=== PATIENT | male | born 1950 | race Caucasian/White ===

== ENCOUNTER 2017-03-22 09:30 | Emergency (ER) | payer OTHER ==
[~2017-03-22] VITALS: Ht 177.8 cm; Wt 66.7 kg
[~2017-03-22 09:30] MED LIST: AMLODIPINE BES10 MG PO; ASPIRIN81 M1 PO; DAYPRO600 M1 PO; LIPITOR40 MG PO; LIPITOR80 MG PO; LISINOPRIL20 MG PO; MULTI-DAY VITA1 EACH PO; NAPROSYN500 MG PO; NIFEDIPINE30 MG PO; NORCO 325 MG-51 TAB PO; PARAFON FORTE500 MG PO; PRINIVIL10 MG PO; RID COMPLETE TP; VITAMIN D1000 IU PO; VITAMIN D50000 I3 PO
[2017-03-22 10:02] LABS: BASO % 0.2 % (0.0-1.0); EOS # 0.2 10*3/uL (0.0-0.4); EOS % 3.2 % (1.0-4.0); HEMATOCRIT 44.4 % (42.0-52.0); HEMOGLOBIN 15.4 g/dl (14.0-18.0); LYMPH # 1.9 10*3/uL (1.3-4.4); LYMPH % 34.6 % (27.0-41.0); MEAN CELL VOLUME 94.1 fl (80.0-94.0); MEAN CORPUSCULAR HGB 32.6 pg (27.0-31.0); MEAN CORPUSCULAR HGB CONC 34.7 g/dl (33.0-37.0); MEAN PLATELET VOLUME 8.7 fl (9.6-12.3); MONO # 0.4 10*3/uL (0.1-1.0); MONO % 6.5 % (3.0-9.0); NEUT # 3.1 10*3/uL (2.3-7.9); NEUT % 55.5 % (47.0-73.0); PLATELET COUNT AUTOMATED 150 10*3/uL (130-400); RED BLOOD COUNT 4.72 10*6/uL (4.50-5.90); RED CELL DISTRI WIDTH 13.1 % (0-14.5); WHITE BLOOD COUNT 5.6 10*3/uL (4.8-10.8)
[2017-03-22 10:18] LABS: ALBUMIN 3.7 gm/dl (3.1-4.5); ALKALINE PHOSPHATASE 142 U/L (45-117); BUN 10 mg/dl (7-24); CHLORIDE 99 mmol/L (98-107); CREATININE 1.02 mg/dL (0.70-1.30); POTASSIUM 3.9 mmol/L (3.5-5.1); SGOT/AST 20 IU/L (3-35); SGPT/ALT 27 U/L (12-78); SODIUM 136 mmol/L (136-145); TOTAL PROTEIN 7.3 gm/dL (6.4-8.2); TROPONIN I < 0.015 ng/ml (<0.045)
== END 2017-03-22 11:35 | disposition home or self-care (01) ==
LOC: ED 09:30
PROVIDERS: Nurse Practitioner Family
DX: R06.02 Shortness of breath (principal); I10 Essential (primary) hypertension

== ENCOUNTER 2017-10-09 07:55 | Emergency (ER) | payer OTHER ==
[~2017-10-09] VITALS: Ht 177.8 cm; Wt 64.0 kg
[2017-10-09] MEDS ORDERED: LISINOPRIL10 M1 PO (08:06)
[2017-10-09 08:39] LABS: BASO % 0.2 % (0.0-1.0); EOS % 0.7 % (1.0-4.0); HEMATOCRIT 44.8 % (42.0-52.0); HEMOGLOBIN 15.9 g/dl (14.0-18.0); LYMPH % 21.7 % (27.0-41.0); MEAN CELL VOLUME 92.9 fl (80.0-94.0); MEAN CORPUSCULAR HGB CONC 35.5 g/dl (33.0-37.0); MEAN PLATELET VOLUME 8.9 fl (9.6-12.3); MONO # 0.2 10*3/uL (0.1-1.0); NEUT # 3.3 10*3/uL (2.3-7.9); NEUT % 71.7 % (47.0-73.0); PLATELET COUNT AUTOMATED 144 10*3/uL (130-400); RED BLOOD COUNT 4.82 10*6/uL (4.50-5.90); RED CELL DISTRI WIDTH 12.9 % (0-14.5); WHITE BLOOD COUNT 4.6 10*3/uL (4.8-10.8)
[2017-10-09 08:52] LABS: ALBUMIN 3.6 gm/dl (3.1-4.5); ALKALINE PHOSPHATASE 115 U/L (45-117); BUN 8 mg/dl (7-24); CHLORIDE 95 mmol/L (98-107); CREATININE 0.98 mg/dL (0.70-1.30); POTASSIUM 4.4 mmol/L (3.5-5.1); SGOT/AST 60 IU/L (3-35); SGPT/ALT 55 U/L (12-78); SODIUM 129 mmol/L (136-145); TOTAL PROTEIN 7.1 gm/dL (6.4-8.2)
== END 2017-10-09 09:53 | disposition home or self-care (01) ==
LOC: ED 07:55
PROVIDERS: Emergency Medicine
DX: R42 Dizziness and giddiness (principal); R05 Cough; Z87.891 Personal history of nicotine dependence; Z79.899 Other long term (current) drug therapy

== ENCOUNTER 2017-11-07 17:06 | Inpatient (IN) | payer OTHER ==
[~2017-11-07] VITALS: Ht 177.8 cm; Wt 61.7 kg
[~2017-11-07 17:06] MED LIST changes: +LISINOPRIL10 M1 PO
[2017-11-07 17:10] VITALS: BP 134/86
[2017-11-07 18:17] LABS: BASO % 0.2 % (0.0-1.0); EOS % 0.9 % (1.0-4.0); HEMATOCRIT 42.2 % (42.0-52.0); HEMOGLOBIN 15.1 g/dl (14.0-18.0); LYMPH # 1.4 10*3/uL (1.3-4.4); LYMPH % 30.3 % (27.0-41.0); MEAN CELL VOLUME 91.3 fl (80.0-94.0); MEAN CORPUSCULAR HGB 32.7 pg (27.0-31.0); MEAN CORPUSCULAR HGB CONC 35.8 g/dl (33.0-37.0); MEAN PLATELET VOLUME 8.8 fl (9.6-12.3); MONO # 0.3 10*3/uL (0.1-1.0); MONO % 5.4 % (3.0-9.0); NEUT # 2.9 10*3/uL (2.3-7.9); PLATELET COUNT AUTOMATED 140 10*3/uL (130-400); RED BLOOD COUNT 4.62 10*6/uL (4.50-5.90); RED CELL DISTRI WIDTH 13.1 % (0-14.5); WHITE BLOOD COUNT 4.7 10*3/uL (4.8-10.8)
[2017-11-07 18:27] LABS: ACT PARTIAL THROMBO TIME 22.6 SECONDS (20.8-31.5); INTERNATIONAL NORM RATIO 0.9 (2.0-3.5)
[2017-11-07 18:34] LABS: ALBUMIN 3.6 gm/dl (3.1-4.5); ALKALINE PHOSPHATASE 105 U/L (45-117); BUN 7 mg/dl (7-24); CHLORIDE 94 mmol/L (98-107); CREATININE 0.84 mg/dL (0.70-1.30); LIPASE 227 U/L (73-393); POTASSIUM 4.2 mmol/L (3.5-5.1); SGOT/AST 46 IU/L (3-35); SGPT/ALT 67 U/L (12-78); SODIUM 127 mmol/L (136-145); TROPONIN I 0.024 ng/ml (<0.045)
[2017-11-07 19:32] VITALS: BP 124/72
== END 2017-11-07 21:48 | disposition left against medical advice (07) | DRG 191 ==
LOC: ED 17:06 → EDHOLD 18:44 → 5E 19:37 → EDHOLD 21:48
PROVIDERS: Emergency Medicine
DX: J44.1 Chronic obstructive pulmonary disease with (acute) exacerbation (principal); E87.1 Hypo-osmolality and hyponatremia; F17.200 Nicotine dependence, unspecified, uncomplicated; Z53.21 Procedure and treatment not carried out due to patient leaving prior to being seen by health care provider; Z82.49 Family history of ischemic heart disease and other diseases of the circulatory system; Z83.3 Family history of diabetes mellitus

== ENCOUNTER 2017-11-09 10:16 | Inpatient (IN) | payer OTHER ==
[~2017-11-09] VITALS: Ht 177.8 cm; Wt 60.8 kg
[2017-11-09 10:20] VITALS: BP 127/70
[2017-11-09 10:40] LABS: EOS # 0.1 10*3/uL (0.0-0.4); EOS % 2.4 % (1.0-4.0); HEMATOCRIT 38.8 % (42.0-52.0); LYMPH # 1.1 10*3/uL (1.3-4.4); LYMPH % 19.9 % (27.0-41.0); MEAN CELL VOLUME 91.3 fl (80.0-94.0); MEAN CORPUSCULAR HGB 32.9 pg (27.0-31.0); MEAN CORPUSCULAR HGB CONC 36.1 g/dl (33.0-37.0); MONO # 0.3 10*3/uL (0.1-1.0); MONO % 6.2 % (3.0-9.0); NEUT # 3.8 10*3/uL (2.3-7.9); NEUT % 71.3 % (47.0-73.0); PLATELET COUNT AUTOMATED 140 10*3/uL (130-400); RED BLOOD COUNT 4.25 10*6/uL (4.50-5.90); WHITE BLOOD COUNT 5.3 10*3/uL (4.8-10.8)
[2017-11-09 10:49] LABS: ACT PARTIAL THROMBO TIME 22.4 SECONDS (20.8-31.5)
[2017-11-09 10:56] LABS: ACETAMINOPHEN (TYLENOL) 2.6 ug/ml (10-30); ALBUMIN 3.4 gm/dl (3.1-4.5); ALKALINE PHOSPHATASE 86 U/L (45-117); BUN 8 mg/dl (7-24); CHLORIDE 91 mmol/L (98-107); CREATININE 0.87 mg/dL (0.70-1.30); SGOT/AST 39 IU/L (3-35); SGPT/ALT 47 U/L (12-78); SODIUM 123 mmol/L (136-145); TOTAL PROTEIN 6.1 gm/dL (6.4-8.2)
[2017-11-09 10:58] LABS: ETHYL ALCOHOL < 3.0 mg/dl (<3)
[2017-11-09 11:04] LABS: BILIRUBIN NEGATIVE (NEGATIVE); BLOOD NEGATIVE (NEGATIVE); CLARITY SL CLOUDY (CLEAR); COLOR YELLOW (YELLOW); GLUCOSE NEGATIVE (NEGATIVE); KETONE NEGATIVE (NEGATIVE); LEUKO ESTERASE NEGATIVE (NEGATIVE); NITRITE NEGATIVE (NEGATIVE); SPECIFIC GRAVITY <= 1.005 (1.005-1.030)
[2017-11-09 11:14] LABS: URINE AMPHETAMINES < 1000 (1000ng/ml); URINE BARBITURATES < 200 (200ng/ml); URINE BENZODIAZEPINES < 200 (200ng/ml); URINE CANNABINOIDS (THC) < 50 (50ng/ml); URINE COCAINE < 300 (300ng/ml); URINE METHADONE < 300 (300ng/ml); URINE OPIATES < 300 (300ng/ml)
[2017-11-09 11:16] LABS: URINE PHENCYCLIDINE < 25 (25ng/ml)
[2017-11-09 11:21] VITALS: BP 103/64
[2017-11-09 11:21] LABS: RBC 0-2 rbc/hpf (0-2); WBC 0-2 wbc/hpf (0-5)
[2017-11-09 11:22] LABS: BACTERIA TRACE; EPITHELIAL CELLS 0-2
[2017-11-09 11:40] VITALS: BP 126/76
[2017-11-09 16:00] VITALS: BP 118/80
[2017-11-09 18:00] LABS: BUN 8 mg/dl (7-24); CHLORIDE 96 mmol/L (98-107); CREATININE 0.87 mg/dL (0.70-1.30); POTASSIUM 4.5 mmol/L (3.5-5.1); SODIUM 131 mmol/L (136-145)
[2017-11-09 20:00] VITALS: BP 114/63
[2017-11-10] VITALS: BP 108/70
== END 2017-11-10 05:07 | disposition left against medical advice (07) | DRG 641 ==
LOC: ED 10:16 → 5E 11:11 → EDHOLD 11:11 → 5E 11:12
PROVIDERS: Internal Medicine Nephrology; Nurse Practitioner Family
DX: E87.1 Hypo-osmolality and hyponatremia (principal); E83.51 Hypocalcemia; R42 Dizziness and giddiness; E87.8 Other disorders of electrolyte and fluid balance, not elsewhere classified; N52.8 Other male erectile dysfunction; F10.10 Alcohol abuse, uncomplicated; E78.00 Pure hypercholesterolemia, unspecified; I10 Essential (primary) hypertension; E86.1 Hypovolemia; Z53.21 Procedure and treatment not carried out due to patient leaving prior to being seen by health care provider; Z79.899 Other long term (current) drug therapy; Z79.82 Long term (current) use of aspirin; Z82.49 Family history of ischemic heart disease and other diseases of the circulatory system; Z71.6 Tobacco abuse counseling; Z72.0 Tobacco use; Z83.3 Family history of diabetes mellitus

== ENCOUNTER 2017-11-11 06:41 | Emergency (ER) | payer OTHER ==
[~2017-11-11] VITALS: Ht 177.8 cm; Wt 62.1 kg
[2017-11-11 07:14] LABS: BASO % 0.2 % (0.0-1.0); EOS % 0.5 % (1.0-4.0); HEMATOCRIT 43.3 % (42.0-52.0); HEMOGLOBIN 14.8 g/dl (14.0-18.0); LYMPH # 0.9 10*3/uL (1.3-4.4); LYMPH % 20.1 % (27.0-41.0); MEAN CORPUSCULAR HGB 32.8 pg (27.0-31.0); MEAN CORPUSCULAR HGB CONC 34.2 g/dl (33.0-37.0); MEAN PLATELET VOLUME 8.7 fl (9.6-12.3); MONO # 0.3 10*3/uL (0.1-1.0); MONO % 5.8 % (3.0-9.0); NEUT # 3.2 10*3/uL (2.3-7.9); NEUT % 73.2 % (47.0-73.0); PLATELET COUNT AUTOMATED 132 10*3/uL (130-400); RED BLOOD COUNT 4.51 10*6/uL (4.50-5.90); RED CELL DISTRI WIDTH 13.3 % (0-14.5); WHITE BLOOD COUNT 4.3 10*3/uL (4.8-10.8)
[2017-11-11 07:17] LABS: ACT PARTIAL THROMBO TIME 21.1 SECONDS (20.8-31.5)
[2017-11-11 07:27] LABS: ALBUMIN 3.6 gm/dl (3.1-4.5); ALKALINE PHOSPHATASE 91 U/L (45-117); BUN 9 mg/dl (7-24); CHLORIDE 98 mmol/L (98-107); CREATININE 0.86 mg/dL (0.70-1.30); ETHYL ALCOHOL < 3.0 mg/dl (<3); POTASSIUM 4.1 mmol/L (3.5-5.1); SGOT/AST 77 IU/L (3-35); SGPT/ALT 75 U/L (12-78); SODIUM 133 mmol/L (136-145); TOTAL PROTEIN 6.5 gm/dL (6.4-8.2)
[2017-11-11 08:07] LABS: BILIRUBIN NEGATIVE (NEGATIVE); BLOOD TRACE-LYSED (NEGATIVE); CLARITY CLEAR (CLEAR); COLOR YELLOW (YELLOW); GLUCOSE NEGATIVE (NEGATIVE); KETONE NEGATIVE (NEGATIVE); LEUKO ESTERASE NEGATIVE (NEGATIVE); NITRITE NEGATIVE (NEGATIVE)
[2017-11-11 08:12] LABS: URINE AMPHETAMINES < 1000 (1000ng/ml); URINE BARBITURATES < 200 (200ng/ml); URINE BENZODIAZEPINES < 200 (200ng/ml); URINE CANNABINOIDS (THC) < 50 (50ng/ml); URINE COCAINE < 300 (300ng/ml); URINE METHADONE < 300 (300ng/ml); URINE OPIATES < 300 (300ng/ml)
[2017-11-11 08:15] LABS: BACTERIA TRACE; MUCOUS TRACE
[2017-11-11 08:20] LABS: URINE PHENCYCLIDINE < 25 (25ng/ml)
== END 2017-11-11 08:55 | disposition home or self-care (01) ==
LOC: ED 06:41
PROVIDERS: Emergency Medicine
DX: E87.1 Hypo-osmolality and hyponatremia (principal); R42 Dizziness and giddiness; F39 Unspecified mood [affective] disorder; I10 Essential (primary) hypertension; E78.00 Pure hypercholesterolemia, unspecified; E83.51 Hypocalcemia; F17.210 Nicotine dependence, cigarettes, uncomplicated; Z79.899 Other long term (current) drug therapy; Z79.82 Long term (current) use of aspirin

== ENCOUNTER 2017-12-08 09:37 | Emergency (ER) | payer OTHER ==
[~2017-12-08] VITALS: Ht 170.1 cm; Wt 61.2 kg
[2017-12-08 10:31] LABS: BASO % 0.2 % (0.0-1.0); EOS % 0.8 % (1.0-4.0); HEMATOCRIT 40.1 % (42.0-52.0); HEMOGLOBIN 13.9 g/dl (14.0-18.0); LYMPH # 1.3 10*3/uL (1.3-4.4); MEAN CELL VOLUME 96.2 fl (80.0-94.0); MEAN CORPUSCULAR HGB 33.3 pg (27.0-31.0); MEAN CORPUSCULAR HGB CONC 34.7 g/dl (33.0-37.0); MEAN PLATELET VOLUME 8.4 fl (9.6-12.3); MONO # 0.4 10*3/uL (0.1-1.0); MONO % 8.1 % (3.0-9.0); NEUT # 3.5 10*3/uL (2.3-7.9); NEUT % 65.7 % (47.0-73.0); PLATELET COUNT AUTOMATED 138 10*3/uL (130-400); RED BLOOD COUNT 4.17 10*6/uL (4.50-5.90); WHITE BLOOD COUNT 5.3 10*3/uL (4.8-10.8)
[2017-12-08 10:44] LABS: ALBUMIN 3.3 gm/dl (3.1-4.5); ALKALINE PHOSPHATASE 95 U/L (45-117); BUN 11 mg/dl (7-24); CHLORIDE 98 mmol/L (98-107); CREATININE 0.82 mg/dL (0.70-1.30); POTASSIUM 4.2 mmol/L (3.5-5.1); SGOT/AST 33 IU/L (3-35); SGPT/ALT 43 U/L (12-78); SODIUM 133 mmol/L (136-145); TOTAL PROTEIN 6.3 gm/dL (6.4-8.2)
[2017-12-08] MEDS ORDERED: GOOD NEIGHBOR M25 MG PO (12:02)
== END 2017-12-08 12:19 | disposition home or self-care (01) ==
LOC: ED 09:37
PROVIDERS: Emergency Medicine
DX: R42 Dizziness and giddiness (principal); F17.210 Nicotine dependence, cigarettes, uncomplicated; I10 Essential (primary) hypertension; E78.00 Pure hypercholesterolemia, unspecified; Z79.82 Long term (current) use of aspirin; Z79.899 Other long term (current) drug therapy

== ENCOUNTER → 2018-02-28 | Outpatient (CLI) | payer OTHER ==
[~2018-02-28] MED LIST changes: +GOOD NEIGHBOR M25 MG PO
== END ==
LOC: US 09:25
DX: Z13.6 Encounter for screening for cardiovascular disorders (principal)

== ENCOUNTER 2018-05-09 08:15 | Emergency (ER) | payer OTHER ==
[~2018-05-09] VITALS: Ht 177.8 cm; Wt 59.0 kg
--- NOTE | ~2018-05-09 | EKG ---
[place], [place] ELECTROCARDIOGRAM REPORT NAME: PIYUSH FELDMAN UNIT #: [id number] ROOM: DOCTOR: EPIPHANY DRAFT REPORT BIRTHDATE: [birth year] [facility] Test Date: 2018-05-09 Test Time: 08:56:03 Pat Name: PIYUSH FELDMAN Department: Room: Gender: M Bath Tester: : 1950 Requested By: CORTNEY MATAMOROS Order Number: [id number] Reading MD: Andrés De Santiago MD Measurements Intervals [place] Rate: 87 P: 78 VT: 185 QRS: 90 QRSD: 93 T: 56 QT: 352 QTc: 424 Interpretive Statements Sinus rhythm Ventricular premature complex Borderline right axis deviation Borderline low voltage, extremity leads Baseline wander in lead(s) V3 Electronically Signed On 05-13-2018 12:26:46 PST by Andrés De Santiago MD CM:EKGRPT:ELECTROCARDIOGRAM REPORT [id number] CORTNEY MATAMOROS MD EPIPHSUKHI DRAFT REPORT CORTNEY MATAMOROS MD
[2018-05-09 08:49] LABS: BASO % 0.2 % (0.0-1.0); EOS # 0.1 10*3/uL (0.0-0.4); EOS % 1.1 % (1.0-4.0); HEMATOCRIT 41.6 % (42.0-52.0); HEMOGLOBIN 14.6 g/dl (14.0-18.0); LYMPH # 1.3 10*3/uL (1.3-4.4); LYMPH % 29.1 % (27.0-41.0); MEAN CELL VOLUME 96.3 fl (80.0-94.0); MEAN CORPUSCULAR HGB 33.8 pg (27.0-31.0); MEAN CORPUSCULAR HGB CONC 35.1 g/dl (33.0-37.0); MEAN PLATELET VOLUME 8.4 fl (9.6-12.3); MONO # 0.3 10*3/uL (0.1-1.0); MONO % 6.5 % (3.0-9.0); NEUT # 2.8 10*3/uL (2.3-7.9); NEUT % 62.9 % (47.0-73.0); PLATELET COUNT AUTOMATED 160 10*3/uL (130-400); RED BLOOD COUNT 4.32 10*6/uL (4.50-5.90); RED CELL DISTRI WIDTH 13.2 % (0-14.5); WHITE BLOOD COUNT 4.4 10*3/uL (4.8-10.8)
[2018-05-09 08:58] LABS: ACT PARTIAL THROMBO TIME 22.6 SECONDS (20.8-31.5); INTERNATIONAL NORM RATIO 0.9 (2.0-3.5)
[2018-05-09 09:06] LABS: ALBUMIN 3.1 gm/dl (3.1-4.5); ALKALINE PHOSPHATASE 82 U/L (45-117); BUN 8 mg/dl (7-24); CHLORIDE 100 mmol/L (98-107); CREATININE 0.83 mg/dL (0.70-1.30); POTASSIUM 4.2 mmol/L (3.5-5.1); SGOT/AST 44 IU/L (3-35); SGPT/ALT 40 U/L (12-78); SODIUM 132 mmol/L (136-145); TOTAL PROTEIN 6.5 gm/dL (6.4-8.2)
[2018-05-09 09:07] LABS: ETHYL ALCOHOL < 3.0 mg/dl (<3); TROPONIN I < 0.015 ng/ml (<0.045)
== END 2018-05-09 09:40 | disposition home or self-care (01) ==
LOC: ED 08:15
PROVIDERS: Emergency Medicine
DX: R42 Dizziness and giddiness (principal); E87.1 Hypo-osmolality and hyponatremia; H53.8 Other visual disturbances; R79.1 Abnormal coagulation profile; F17.210 Nicotine dependence, cigarettes, uncomplicated; Z79.82 Long term (current) use of aspirin; Z79.899 Other long term (current) drug therapy

== ENCOUNTER 2018-06-07 09:27 | Emergency (ER) | payer OTHER ==
[~2018-06-07] VITALS: Ht 177.8 cm; Wt 60.8 kg
== END 2018-06-07 11:03 | disposition left against medical advice (07) ==
LOC: ED 09:27
DX: S22.41XA Multiple fractures of ribs, right side, initial encounter for closed fracture (principal); I10 Essential (primary) hypertension; E78.00 Pure hypercholesterolemia, unspecified; F17.210 Nicotine dependence, cigarettes, uncomplicated; Z79.899 Other long term (current) drug therapy; Z79.82 Long term (current) use of aspirin; W22.01XA Walked into wall, initial encounter; Y93.89 Activity, other specified; Y92.89 Other specified places as the place of occurrence of the external cause; Y99.8 Other external cause status

== ENCOUNTER → 2019-01-01 | Outpatient (CLI) | payer OTHER ==
--- NOTE | ~2019-01-01 | EKG ---
[place], [place] ELECTROCARDIOGRAM REPORT NAME: PIYUSH FELDMAN UNIT #: [id number] ROOM: DOCTOR: EPIPHANY DRAFT REPORT BIRTHDATE: [birth year] [facility] Test Date: 2019-01-01 Test Time: 08:17:12 Pat Name: PIYUSH FELDMAN Department: Room: Gender: M Dba Manager: Shamika Landis : 1950 Requested By: IRMA ROMAN Order Number: [id number] Reading MD: Orville Granados MD Measurements Intervals [place] Rate: 67 P: 90 HI: 186 QRS: 90 QRSD: 99 T: 70 QT: 375 QTc: 396 Interpretive Statements Sinus rhythm Multiple premature complexes, vent \T\ supraven Borderline right axis deviation Baseline wander in lead(s) II,III,aVF Compared to ECG 05/09/2018 08:56:03 Ventricular premature complex(es) no longer present Electronically Signed On 01-02-2019 12:28:02 PDT by Orville Granados MD CM:EKGRPT:ELECTROCARDIOGRAM REPORT [id number] IRMA NICHOLS DRAFT REPORT IRMA ROMAN
== END | disposition home or self-care (01) ==
LOC: CARD 07:06
DX: I34.0 Nonrheumatic mitral (valve) insufficiency (principal); I49.2 Junctional premature depolarization; R00.2 Palpitations; I10 Essential (primary) hypertension

== ENCOUNTER 2020-04-12 08:38 | Emergency (ER) | payer OTHER ==
[2020-04-12 10:23] LABS: BASO % 0.1 % (0.0-1.0); EOS % 0.1 % (1.0-4.0); HEMATOCRIT 40.5 % (42.0-52.0); LYMPH # 0.6 10*3/uL (1.3-4.4); LYMPH % 8.8 % (27.0-41.0); MEAN CELL VOLUME 96.4 fl (80.0-94.0); MEAN CORPUSCULAR HGB 33.8 pg (27.0-31.0); MEAN CORPUSCULAR HGB CONC 35.1 g/dl (33.0-37.0); MEAN PLATELET VOLUME 9.2 fl (9.6-12.3); MONO # 0.2 10*3/uL (0.1-1.0); NEUT # 6.4 10*3/uL (2.3-7.9); NEUT % 87.9 % (47.0-73.0); PLATELET COUNT AUTOMATED 131 10*3/uL (130-400); RED CELL DISTRI WIDTH 12.9 % (0-14.5); WHITE BLOOD COUNT 7.3 10*3/uL (4.8-10.8)
[2020-04-12 10:32] LABS: ACT PARTIAL THROMBO TIME 24.6 SECONDS (20.0-32.1)
[2020-04-12 10:36] LABS: ALBUMIN 3.6 gm/dl (3.1-4.5); ALKALINE PHOSPHATASE 96 U/L (45-117); BUN 7 mg/dl (7-24); CHLORIDE 100 mmol/L (98-107); CREATININE 0.82 mg/dL (0.70-1.30); LIPASE 104 U/L (73-393); POTASSIUM 4.4 mmol/L (3.5-5.1); SGOT/AST 25 IU/L (3-35); SGPT/ALT 23 U/L (12-78); SODIUM 132 mmol/L (136-145); TROPONIN I < 0.015 ng/ml (<0.045)
[2020-04-12 10:45] LABS: ETHYL ALCOHOL < 3.0 mg/dl (<3)
== END 2020-04-12 12:39 | disposition left against medical advice (07) ==
LOC: ED 08:38
PROVIDERS: Emergency Medicine
DX: M25.552 Pain in left hip (principal); R79.1 Abnormal coagulation profile; F17.210 Nicotine dependence, cigarettes, uncomplicated; Z79.899 Other long term (current) drug therapy; Z79.82 Long term (current) use of aspirin; W18.39XA Other fall on same level, initial encounter; Y93.89 Activity, other specified; Y92.89 Other specified places as the place of occurrence of the external cause; Y99.8 Other external cause status

== ENCOUNTER 2020-11-11 09:36 | Emergency (ER) | payer OTHER ==
[~2020-11-11] VITALS: Wt 58.1 kg
[~2020-11-11 09:36] MED LIST changes: +ASPIRIN ADULT L81 M2 PO; +ATORVASTATIN CA20 M1 PO; +MECLIZINE HCL25 M2 PO
[2020-11-11 11:13] LABS: BASO % 0.3 % (0.0-1.0); EOS # 0.1 10*3/uL (0.0-0.4); EOS % 1.3 % (1.0-4.0); HEMATOCRIT 42.5 % (42.0-52.0); LYMPH # 1.1 10*3/uL (1.3-4.4); LYMPH % 29.3 % (27.0-41.0); MEAN CELL VOLUME 93.2 fl (80.0-94.0); MEAN CORPUSCULAR HGB 33.3 pg (27.0-31.0); MEAN CORPUSCULAR HGB CONC 35.8 g/dl (33.0-37.0); MEAN PLATELET VOLUME 8.9 fl (9.6-12.3); MONO # 0.3 10*3/uL (0.1-1.0); MONO % 6.9 % (3.0-9.0); NEUT # 2.3 10*3/uL (2.3-7.9); NEUT % 61.9 % (47.0-73.0); PLATELET COUNT AUTOMATED 149 10*3/uL (130-400); RED BLOOD COUNT 4.56 10*6/uL (4.50-5.90); RED CELL DISTRI WIDTH 12.5 % (0-14.5); WHITE BLOOD COUNT 3.8 10*3/uL (4.8-10.8)
[2020-11-11 11:30] LABS: ALBUMIN 3.5 gm/dl (3.1-4.5); ALKALINE PHOSPHATASE 100 U/L (45-117); BUN 8 mg/dl (7-24); CHLORIDE 98 mmol/L (98-107); LIPASE 112 U/L (73-393); POTASSIUM 4.4 mmol/L (3.5-5.1); SGOT/AST 14 IU/L (3-35); SGPT/ALT 15 U/L (12-78); SODIUM 130 mmol/L (136-145); TOTAL PROTEIN 7.4 gm/dL (6.4-8.2)
[2020-11-11 11:31] LABS: TROPONIN I < 0.015 ng/ml (<0.045)
[2020-11-11 11:42] LABS: BILIRUBIN Negative (Negative); BLOOD Negative (Negative); CLARITY Clear (Clear); COLOR Yellow (Yellow); GLUCOSE Negative (Negative); KETONE Negative (Negative); LEUKO ESTERASE Negative (Negative); NITRITE Negative (Negative); PH 5.5 (4.5-8.0)
[2020-11-11 11:50] LABS: WBC 0-2 wbc/hpf (0-5)
== END 2020-11-11 13:28 | disposition left against medical advice (07) ==
LOC: ED 09:36
PROVIDERS: Emergency Medicine
DX: R42 Dizziness and giddiness (principal); Z79.899 Other long term (current) drug therapy

== ENCOUNTER → 2020-11-23 | Outpatient (CLI) | payer OTHER | END | disposition home or self-care (01) | LOC: CT 15:00 | PROVIDERS: ATTEND Internal Medicine | DX: G31.9 Degenerative disease of nervous system, unspecified (principal); G93.89 Other specified disorders of brain; F03.90 Unspecified dementia, unspecified severity, without behavioral disturbance, psychotic disturbance, mood disturbance, and anxiety ==

== ENCOUNTER 2020-11-29 16:50 | Emergency (ER) | payer OTHER ==
[~2020-11-29] VITALS: Wt 58.1 kg
== END 2020-11-29 18:27 | disposition home or self-care (01) ==
LOC: ED 16:50
DX: I10 Essential (primary) hypertension (principal); F17.210 Nicotine dependence, cigarettes, uncomplicated; Z79.899 Other long term (current) drug therapy; Z79.82 Long term (current) use of aspirin

== ENCOUNTER 2021-09-07 17:45 | Emergency (ER) | payer OTHER ==
[~2021-09-07] VITALS: Wt 59.0 kg
== END 2021-09-07 18:08 | disposition left against medical advice (07) ==
LOC: ED 17:45
DX: R03.0 Elevated blood-pressure reading, without diagnosis of hypertension (principal); Z53.21 Procedure and treatment not carried out due to patient leaving prior to being seen by health care provider

== ENCOUNTER 2021-11-14 15:52 | Inpatient (IN) | payer OTHER ==
[2021-11-14 16:11] VITALS: BP 174/90
[2021-11-14 18:07] LABS: BASO % 0.2 % (0.0-1.0); EOS # 0.2 10*3/uL (0.0-0.4); EOS % 2.9 % (1.0-4.0); HEMATOCRIT 36.8 % (42.0-52.0); LYMPH # 1.3 10*3/uL (1.3-4.4); LYMPH % 24.3 % (27.0-41.0); MEAN CELL VOLUME 85.2 fl (80.0-94.0); MEAN CORPUSCULAR HGB CONC 32.9 g/dl (33.0-37.0); MONO # 0.4 10*3/uL (0.1-1.0); NEUT # 3.6 10*3/uL (2.3-7.9); NEUT % 65.4 % (47.0-73.0); PLATELET COUNT AUTOMATED 147 10*3/uL (130-400); RED BLOOD COUNT 4.32 10*6/uL (4.50-5.90); RED CELL DISTRI WIDTH 14.9 % (0-14.5); WHITE BLOOD COUNT 5.4 10*3/uL (4.8-10.8)
[2021-11-14 18:31] LABS: ALKALINE PHOSPHATASE 108 U/L (45-117); BUN 7 mg/dl (7-24); CHLORIDE 102 mmol/L (98-107); CREATININE 0.87 mg/dL (0.70-1.30); POTASSIUM 4.4 mmol/L (3.5-5.1); SGOT/AST 25 IU/L (3-35); SGPT/ALT 27 U/L (12-78); SODIUM 134 mmol/L (136-145); TOTAL PROTEIN 7.2 gm/dL (6.4-8.2)
[2021-11-14 18:59] VITALS: BP 185/99
[2021-11-14 19:02] VITALS: BP 185/99
[2021-11-14 20:44] VITALS: BP 111/75
[2021-11-14 23:45] VITALS: BP 127/66
== END 2021-11-15 01:27 | disposition left against medical advice (07) | DRG 305 ==
LOC: ED 15:52 → EDHOLD 20:49 → 4E 11-15 00:19
PROVIDERS: Physician Assistant; ADMIT Internal Medicine; ATTEND Internal Medicine
DX: I16.0 Hypertensive urgency (principal); E87.1 Hypo-osmolality and hyponatremia; I48.91 Unspecified atrial fibrillation; D64.9 Anemia, unspecified; Z53.29 Procedure and treatment not carried out because of patient's decision for other reasons; F17.210 Nicotine dependence, cigarettes, uncomplicated; Z82.49 Family history of ischemic heart disease and other diseases of the circulatory system; Z83.3 Family history of diabetes mellitus

== ENCOUNTER 2021-11-15 12:34 | Emergency (ER) | payer OTHER | END 2021-11-15 13:09 | disposition left against medical advice (07) | LOC: ED 12:34 | DX: Z53.21 Procedure and treatment not carried out due to patient leaving prior to being seen by health care provider (principal) ==

== ENCOUNTER 2023-01-21 11:16 | Emergency (ER) | payer OTHER ==
[~2023-01-21] VITALS: Ht 172.7 cm; Wt 54.4 kg
[2023-01-21 12:01] LABS: BASO % 0.2 % (0.0-1.0); EOS # 0.1 10*3/uL (0.0-0.4); EOS % 2.5 % (1.0-4.0); HEMATOCRIT 37.5 % (42.0-52.0); LYMPH # 1.1 10*3/uL (1.3-4.4); LYMPH % 25.1 % (27.0-41.0); MEAN CELL VOLUME 92.4 fl (80.0-94.0); MEAN CORPUSCULAR HGB CONC 34.7 g/dl (33.0-37.0); MEAN PLATELET VOLUME 9.9 fl (9.6-12.3); MONO # 0.3 10*3/uL (0.1-1.0); MONO % 6.3 % (3.0-9.0); NEUT # 2.9 10*3/uL (2.3-7.9); NEUT % 65.9 % (47.0-73.0); PLATELET COUNT AUTOMATED 130 10*3/uL (130-400); RED BLOOD COUNT 4.06 10*6/uL (4.50-5.90); RED CELL DISTRI WIDTH 13.1 % (0-14.5); WHITE BLOOD COUNT 4.4 10*3/uL (4.8-10.8)
[2023-01-21 12:10] LABS: ACT PARTIAL THROMBO TIME 24.8 SECONDS (20.0-32.1); INTERNATIONAL NORM RATIO 1.1 (2.0-3.5)
[2023-01-21 12:21] LABS: ALKALINE PHOSPHATASE 77 U/L (46-116); BUN 9 mg/dl (9-23); CHLORIDE 101 mmol/L (98-107); LIPASE 35 U/L (12-53); POTASSIUM 3.5 mmol/L (3.4-5.1); SGPT/ALT 7 U/L (10-49); TOTAL PROTEIN 6.7 gm/dL (6.0-8.0)
[2023-01-21] MEDS ORDERED: ANTI-DIARRHEAL2 MG PO (12:32)
[2023-01-21] MEDS ORDERED: PEPCID20 MG PO (12:32)
== END 2023-01-21 13:10 | disposition home or self-care (01) ==
LOC: ED 11:16
PROVIDERS: Emergency Medicine
DX: R19.7 Diarrhea, unspecified (principal); I10 Essential (primary) hypertension; J44.9 Chronic obstructive pulmonary disease, unspecified; M19.90 Unspecified osteoarthritis, unspecified site; E78.00 Pure hypercholesterolemia, unspecified; F17.200 Nicotine dependence, unspecified, uncomplicated; F10.10 Alcohol abuse, uncomplicated

== ENCOUNTER 2023-02-08 14:08 | Inpatient (IN) | payer OTHER ==
[~2023-02-08] VITALS: Ht 175.2 cm; Wt 49.0 kg
[~2023-02-08 14:08] MED LIST changes: +ANTI-DIARRHEAL2 MG PO; +PEPCID20 MG PO
[2023-02-08 14:36] LABS: BASO % 0.2 % (0.0-1.0); EOS # 0.1 10*3/uL (0.0-0.4); EOS % 1.9 % (1.0-4.0); HEMATOCRIT 33.7 % (42.0-52.0); LYMPH # 1.1 10*3/uL (1.3-4.4); LYMPH % 22.7 % (27.0-41.0); MEAN CELL VOLUME 93.6 fl (80.0-94.0); MEAN CORPUSCULAR HGB 32.2 pg (27.0-31.0); MEAN CORPUSCULAR HGB CONC 34.4 g/dl (33.0-37.0); MEAN PLATELET VOLUME 9.3 fl (9.6-12.3); MONO # 0.3 10*3/uL (0.1-1.0); MONO % 6.5 % (3.0-9.0); NEUT # 3.3 10*3/uL (2.3-7.9); NEUT % 68.3 % (47.0-73.0); PLATELET COUNT AUTOMATED 144 10*3/uL (130-400); WHITE BLOOD COUNT 4.8 10*3/uL (4.8-10.8)
[2023-02-08 14:41] VITALS: BP 166/83
[2023-02-08 14:48] LABS: INTERNATIONAL NORM RATIO 1.1 (2.0-3.5)
[2023-02-08 14:58] LABS: ALKALINE PHOSPHATASE 88 U/L (46-116); BUN 10 mg/dl (9-23); CHLORIDE 101 mmol/L (98-107); LIPASE 44 U/L (12-53); POTASSIUM 3.9 mmol/L (3.4-5.1); SGPT/ALT 8 U/L (10-49); TOTAL PROTEIN 6.2 gm/dL (6.0-8.0)
[2023-02-08 15:20] LABS: BILIRUBIN Negative (Negative); BLOOD Negative (Negative); CLARITY Clear (Clear); COLOR Yellow (Yellow); GLUCOSE Negative (Negative); KETONE Negative (Negative); LEUKO ESTERASE 2+ (Negative); NITRITE Positive (Negative)
[2023-02-08 15:33] LABS: BACTERIA 2+; WBC 21-30 wbc/hpf (0-5)
[2023-02-08 18:53] VITALS: BP 103/55
[2023-02-08 19:49] VITALS: BP 128/76
[2023-02-08 20:01] VITALS: BP 142/26
[2023-02-08 22:01] VITALS: BP 136/88
[2023-02-09 00:02] VITALS: BP 180/78
[2023-02-09 01:08] VITALS: BP 179/98
[2023-02-09 02:02] VITALS: BP 183/75
[2023-02-09 06:08] VITALS: BP 163/84
[2023-02-09 06:18] LABS: ACT PARTIAL THROMBO TIME 27.5 SECONDS (20.0-32.1); INTERNATIONAL NORM RATIO 1.1 (2.0-3.5)
[2023-02-09 06:19] LABS: BASO % 0.2 % (0.0-1.0); EOS # 0.1 10*3/uL (0.0-0.4); EOS % 2.1 % (1.0-4.0); HEMATOCRIT 34.7 % (42.0-52.0); LYMPH # 0.9 10*3/uL (1.3-4.4); LYMPH % 16.4 % (27.0-41.0); MEAN CORPUSCULAR HGB 32.2 pg (27.0-31.0); MEAN CORPUSCULAR HGB CONC 34.6 g/dl (33.0-37.0); MEAN PLATELET VOLUME 9.9 fl (9.6-12.3); MONO # 0.2 10*3/uL (0.1-1.0); MONO % 4.3 % (3.0-9.0); NEUT # 4.1 10*3/uL (2.3-7.9); NEUT % 76.8 % (47.0-73.0); PLATELET COUNT AUTOMATED 149 10*3/uL (130-400); RED BLOOD COUNT 3.73 10*6/uL (4.50-5.90); RED CELL DISTRI WIDTH 13.8 % (0-14.5); WHITE BLOOD COUNT 5.3 10*3/uL (4.8-10.8)
[2023-02-09 06:25] LABS: ALKALINE PHOSPHATASE 93 U/L (46-116); BUN 5 mg/dl (9-23); CHLORIDE 105 mmol/L (98-107); CHOLESTEROL 117 mg/dL (<200); FREE T4 1.01 ng/dl (0.89-1.76); LDL CHOLESTEROL 57 mg/dL (9-159); POTASSIUM 3.7 mmol/L (3.4-5.1); SGPT/ALT 7 U/L (10-49); TOTAL PROTEIN 6.1 gm/dL (6.0-8.0); TRIGLYCERIDES 62 mg/dl (<150)
[2023-02-09 08:54] LABS: VITAMIN D, 25-HYDROXY 62.4 ng/mL (30-100)
[2023-02-09 11:34] VITALS: BP 125/77
[2023-02-09] MEDS ORDERED: CIPRO500 MG PO (12:29)
== END 2023-02-09 13:18 | disposition home or self-care (01) | DRG 689 ==
LOC: ED 14:08 → EDHOLD 17:41
PROVIDERS: Emergency Medicine; Family Medicine; ADMIT Family Medicine; ATTEND Family Medicine
DX: N39.0 Urinary tract infection, site not specified (principal); G93.41 Metabolic encephalopathy; E87.1 Hypo-osmolality and hyponatremia; J44.9 Chronic obstructive pulmonary disease, unspecified; I10 Essential (primary) hypertension; E78.5 Hyperlipidemia, unspecified; K21.9 Gastro-esophageal reflux disease without esophagitis; G89.29 Other chronic pain; M54.50 Low back pain, unspecified; I44.0 Atrioventricular block, first degree; D75.89 Other specified diseases of blood and blood-forming organs; J84.10 Pulmonary fibrosis, unspecified; F17.200 Nicotine dependence, unspecified, uncomplicated; N52.9 Male erectile dysfunction, unspecified; I25.10 Atherosclerotic heart disease of native coronary artery without angina pectoris; D50.9 Iron deficiency anemia, unspecified; F10.10 Alcohol abuse, uncomplicated; Z82.49 Family history of ischemic heart disease and other diseases of the circulatory system; Z83.3 Family history of diabetes mellitus

== ENCOUNTER 2023-07-17 11:20 | Emergency (ER) | payer OTHER ==
[~2023-07-17] VITALS: Ht 157.4 cm; Wt 51.3 kg
[~2023-07-17 11:20] MED LIST changes: +CIPRO500 MG PO
[2023-07-17 12:35] LABS: EOS % 0.2 % (1.0-4.0); HEMATOCRIT 37.4 % (42.0-52.0); LYMPH % 20.1 % (27.0-41.0); MEAN CELL VOLUME 90.8 fl (80.0-94.0); MEAN CORPUSCULAR HGB 31.3 pg (27.0-31.0); MEAN CORPUSCULAR HGB CONC 34.5 g/dl (33.0-37.0); MEAN PLATELET VOLUME 9.2 fl (9.6-12.3); MONO # 0.3 10*3/uL (0.1-1.0); MONO % 5.1 % (3.0-9.0); NEUT # 3.8 10*3/uL (2.3-7.9); NEUT % 74.2 % (47.0-73.0); PLATELET COUNT AUTOMATED 165 10*3/uL (130-400); RED BLOOD COUNT 4.12 10*6/uL (4.50-5.90); RED CELL DISTRI WIDTH 14.8 % (0-14.5); WHITE BLOOD COUNT 5.1 10*3/uL (4.8-10.8)
[2023-07-17 12:50] LABS: ACT PARTIAL THROMBO TIME 27.5 SECONDS (20.0-32.1)
[2023-07-17 13:08] LABS: ALKALINE PHOSPHATASE 116 U/L (46-116); BUN 17 mg/dl (9-23); CHLORIDE 100 mmol/L (98-107); LIPASE 28 U/L (12-53); POTASSIUM 3.3 mmol/L (3.4-5.1); SGPT/ALT 12 U/L (5-49); TOTAL PROTEIN 6.9 gm/dL (6.0-8.0)
[2023-07-17 14:10] LABS: BILIRUBIN 1+ (Negative); BLOOD 1+ (Negative); CLARITY Turbid (Clear); COLOR Dark Yellow (Yellow); GLUCOSE Negative (Negative); KETONE Negative (Negative); LEUKO ESTERASE 2+ (Negative); NITRITE Negative (Negative); PH 5.5 (4.5-8.0)
[2023-07-17 15:24] LABS: BACTERIA 2+; MUCOUS 4+; WBC 31-40 wbc/hpf (0-5)
== END 2023-07-17 14:49 | disposition home or self-care (01) ==
LOC: ED 11:20
PROVIDERS: Emergency Medicine
DX: R42 Dizziness and giddiness (principal); J44.9 Chronic obstructive pulmonary disease, unspecified; I10 Essential (primary) hypertension; R10.2 Pelvic and perineal pain; K21.9 Gastro-esophageal reflux disease without esophagitis; M19.90 Unspecified osteoarthritis, unspecified site; E78.00 Pure hypercholesterolemia, unspecified; F10.10 Alcohol abuse, uncomplicated; F17.200 Nicotine dependence, unspecified, uncomplicated; Z79.899 Other long term (current) drug therapy

== ENCOUNTER 2024-06-15 13:00 | Inpatient (IN) | payer OTHER ==
[~2024-06-15] VITALS: Ht 180.3 cm; Wt 48.7 kg
[~2024-06-15 13:00] MED LIST changes: +FEROSUL325 M1 PO; +METOPROLOL SUCC25 M2 PO; +OMEPRAZOLE40 MG PO
[2024-06-15 13:02] VITALS: BP 150/87
[2024-06-15] MEDS ORDERED: Meclizine Hydrochloride 25 MG TAB PO ONE (13:10)
[2024-06-15 13:36] LABS: EOS # 0.1 10*3/uL (0.0-0.4); EOS % 0.9 % (1.0-4.0); HEMATOCRIT 35.7 % (42.0-52.0); MEAN CELL VOLUME 90.4 fl (80.0-94.0); MEAN CORPUSCULAR HGB 29.4 pg (27.0-31.0); MEAN CORPUSCULAR HGB CONC 32.5 g/dl (33.0-37.0); MEAN PLATELET VOLUME 9.7 fl (9.6-12.3); MONO # 0.3 10*3/uL (0.1-1.0); MONO % 5.1 % (3.0-9.0); NEUT # 4.1 10*3/uL (2.3-7.9); NEUT % 76.9 % (47.0-73.0); PLATELET COUNT AUTOMATED 150 10*3/uL (130-400); RED BLOOD COUNT 3.95 10*6/uL (4.50-5.90); RED CELL DISTRI WIDTH 14.9 % (0-14.5); WHITE BLOOD COUNT 5.3 10*3/uL (4.8-10.8)
[2024-06-15 13:56] LABS: BUN 16 mg/dl (9-23); CHLORIDE 101 mmol/L (98-107); POTASSIUM 3.9 mmol/L (3.4-5.1)
[2024-06-15 14:32] LABS: BILIRUBIN Negative (Negative); BLOOD Negative (Negative); CLARITY Cloudy (Clear); COLOR Yellow (Yellow); GLUCOSE Negative (Negative); KETONE Negative (Negative); LEUKO ESTERASE 2+ (Negative); NITRITE Positive (Negative)
[2024-06-15 14:42] LABS: BACTERIA 4+; EPITHELIAL CELLS 0-2; RBC 0-2 rbc/hpf (0-2); WBC 41-50 wbc/hpf (0-5)
[2024-06-15] MEDS ORDERED: Ceftriaxone Sodium 1 GM/10 ML SYR IV ONE (14:55)
[2024-06-15] MEDS ORDERED: BISACODYL 5 MG TAB PO PRN (15:50)
[2024-06-15] MEDS ORDERED: ACETAMINOPHEN 650 MG SUPP R PRN (15:50)
[2024-06-15] MEDS ORDERED: ACETAMINOPHEN 325 MG TAB PO PRN (15:50)
[2024-06-15] MEDS ORDERED: BISACODYL 10 MG SUPP R PRN (15:50)
[2024-06-15] MEDS ORDERED: Ondansetron Hydrochloride 4 MG/2 ML VIAL IV PRN (15:50)
[2024-06-15] MEDS ORDERED: Magnesium Hydroxide 30 ML UDC PO PRN (15:50)
[2024-06-15] MEDS ORDERED: IOHEXOL 350 MG/ML 100 ML VIAL IV ONE (17:10)
[2024-06-15] MEDS ORDERED: SODIUM CHLORIDE 0.9% 100 ML BAG IV ONE (17:10)
[2024-06-15 18:51] VITALS: BP 171/89
[2024-06-15 19:03] VITALS: BP 151/80
[2024-06-15 22:04] VITALS: BP 104/53
[2024-06-16 02:36] VITALS: BP 128/67
[2024-06-16] MEDS ORDERED: Pantoprazole Sodium 40 MG TAB PO SCH (06:00)
[2024-06-16 06:20] VITALS: BP 138/87
[2024-06-16 07:15] LABS: BASO % 0.2 % (0.0-1.0); EOS # 0.1 10*3/uL (0.0-0.4); EOS % 2.4 % (1.0-4.0); HEMATOCRIT 36.5 % (42.0-52.0); MEAN CELL VOLUME 89.9 fl (80.0-94.0); MEAN CORPUSCULAR HGB 28.8 pg (27.0-31.0); MEAN CORPUSCULAR HGB CONC 32.1 g/dl (33.0-37.0); MEAN PLATELET VOLUME 10.4 fl (9.6-12.3); MONO # 0.3 10*3/uL (0.1-1.0); NEUT # 3.6 10*3/uL (2.3-7.9); PLATELET COUNT AUTOMATED 149 10*3/uL (130-400); RED BLOOD COUNT 4.06 10*6/uL (4.50-5.90); RED CELL DISTRI WIDTH 15.1 % (0-14.5)
[2024-06-16 07:36] LABS: ALKALINE PHOSPHATASE 119 U/L (46-116); BUN 15 mg/dl (9-23); CHLORIDE 102 mmol/L (98-107); FREE T4 1.03 ng/dl (0.89-1.76); POTASSIUM 4.2 mmol/L (3.4-5.1); SGPT/ALT 11 U/L (5-49); TOTAL PROTEIN 6.5 gm/dL (6.0-8.0)
[2024-06-16 08:15] VITALS: BP 148/81
[2024-06-16] MEDS ORDERED: Enoxaparin Sodium 40 MG/0.4 ML SYR SC SCH (10:00)
[2024-06-16] MEDS ORDERED: Clopidogrel Hydrogen Sulfate 75 MG TAB PO SCH (10:00)
[2024-06-16] MEDS ORDERED: ASPIRIN, CHEWABLE 81 MG TAB PO SCH (10:00)
[2024-06-16 10:43] LABS: VITAMIN D, 25-HYDROXY 71.6 ng/mL (30-100)
[2024-06-16 12:00] VITALS: BP 156/84
[2024-06-16 16:00] VITALS: BP 110/56
[2024-06-16] MEDS ORDERED: Ceftriaxone Sodium 1 GM,IV 1 EA in SYRINGE INFUSION 10 ML IV SCH (16:00)
[2024-06-16 20:00] VITALS: BP 156/79
[2024-06-17] VITALS: BP 130/48
[2024-06-17 06:15] LABS: BASO % 0.2 % (0.0-1.0); EOS # 0.1 10*3/uL (0.0-0.4); EOS % 1.7 % (1.0-4.0); HEMATOCRIT 38.6 % (42.0-52.0); MEAN CELL VOLUME 88.3 fl (80.0-94.0); MEAN CORPUSCULAR HGB 29.1 pg (27.0-31.0); MEAN CORPUSCULAR HGB CONC 32.9 g/dl (33.0-37.0); MEAN PLATELET VOLUME 9.9 fl (9.6-12.3); MONO # 0.3 10*3/uL (0.1-1.0); MONO % 5.6 % (3.0-9.0); NEUT % 76.8 % (47.0-73.0); PLATELET COUNT AUTOMATED 149 10*3/uL (130-400); RED BLOOD COUNT 4.37 10*6/uL (4.50-5.90); RED CELL DISTRI WIDTH 14.7 % (0-14.5); WHITE BLOOD COUNT 5.2 10*3/uL (4.8-10.8)
[2024-06-17 07:02] LABS: BUN 21 mg/dl (9-23); CHLORIDE 99 mmol/L (98-107); POTASSIUM 3.8 mmol/L (3.4-5.1)
[2024-06-17 08:00] VITALS: BP 120/87
[2024-06-17] MEDS ORDERED: Vancomycin Hydrochloride 1,000 MG in SODIUM CHLORIDE 0.9% 250 ML IV SCH (08:05)
[2024-06-17] MEDS ORDERED: Vancomycin Hydrochloride 750 MG in SODIUM CHLORIDE 0.9% 250 ML IV SCH (10:00)
[2024-06-17] MEDS ORDERED: METOPROLOL SUCCINATE XR 25 MG TAB PO SCH (10:00)
[2024-06-17] MEDS ORDERED: FAMOTIDINE 20 MG TAB PO SCH (10:00)
[2024-06-17] MEDS ORDERED: IOHEXOL 300 MG/ML 100 ML VIAL IV ONE (10:15)
[2024-06-17 12:00] VITALS: BP 127/88
[2024-06-17] MEDS ORDERED: IOHEXOL 300 MG/ML 100 ML VIAL ONE (12:40)
[2024-06-17] MEDS ORDERED: FOSFOMYCIN TROME3 GM PO (14:53)
[2024-06-17] MEDS ORDERED: XARE20MG PO (14:53)
[2024-06-17] MEDS ORDERED: RIVAROXABAN 20 MG TAB PO SCH (18:00)
[2024-06-17] MEDS ORDERED: PEPCID20 MG PO (19:59)
[2024-06-17] MEDS ORDERED: FEOSOL325 MG PO (20:00)
[2024-06-17] MEDS ORDERED: MEDI-MECLIZINE25 MG PO (20:01)
[2024-06-17] MEDS ORDERED: ADULT LOW DOSE81 MG PO (20:35)
[2024-06-17] MEDS ORDERED: PLAVIX75 M1 PO (20:36)
== END 2024-06-17 16:08 | DRG 64 ==
LOC: ED 13:00 → 4E 15:17 → EDHOLD 15:17 → 4E 06-16 07:26
PROVIDERS: Physician Assistant Medical; Student in an Organized Health Care Education/Training Program; ADMIT Internal Medicine; ATTEND Internal Medicine
DX: I63.81 Other cerebral infarction due to occlusion or stenosis of small artery (principal); G93.41 Metabolic encephalopathy; N39.0 Urinary tract infection, site not specified; D64.9 Anemia, unspecified; R73.9 Hyperglycemia, unspecified; I10 Essential (primary) hypertension; I25.10 Atherosclerotic heart disease of native coronary artery without angina pectoris; J44.9 Chronic obstructive pulmonary disease, unspecified; F17.210 Nicotine dependence, cigarettes, uncomplicated; I65.23 Occlusion and stenosis of bilateral carotid arteries; Z82.49 Family history of ischemic heart disease and other diseases of the circulatory system; Z79.899 Other long term (current) drug therapy

== ENCOUNTER 2024-07-08 11:43 | Emergency (ER) | payer OTHER ==
[~2024-07-08] VITALS: Ht 180.3 cm; Wt 56.8 kg
[~2024-07-08 11:43] MED LIST changes: +ADULT LOW DOSE81 MG PO; +DIVALPROEX SOD250 MG PO; +FEOSOL325 MG PO; +FOSFOMYCIN TROME3 GM PO; +MEDI-MECLIZINE25 MG PO; +MEMANTINE HCL10 MG PO; +PLAVIX75 M1 PO; +RIVASTIGMINE1 EAC2 T; +XARE20MG PO
[2024-07-08] MEDS ORDERED: Meclizine Hydrochloride 25 MG TAB PO ONE (11:50)
[2024-07-08 12:17] LABS: EOS # 0.1 10*3/uL (0.0-0.4); EOS % 3.3 % (1.0-4.0); HEMATOCRIT 32.7 % (42.0-52.0); MEAN CELL VOLUME 90.6 fl (80.0-94.0); MEAN CORPUSCULAR HGB 29.4 pg (27.0-31.0); MEAN CORPUSCULAR HGB CONC 32.4 g/dl (33.0-37.0); MEAN PLATELET VOLUME 9.5 fl (9.6-12.3); MONO # 0.4 10*3/uL (0.1-1.0); MONO % 9.6 % (3.0-9.0); NEUT % 70.4 % (47.0-73.0); PLATELET COUNT AUTOMATED 158 10*3/uL (130-400); RED BLOOD COUNT 3.61 10*6/uL (4.50-5.90); RED CELL DISTRI WIDTH 14.8 % (0-14.5); WHITE BLOOD COUNT 4.3 10*3/uL (4.8-10.8)
[2024-07-08 12:21] LABS: BUN 13 mg/dl (9-23); CHLORIDE 99 mmol/L (98-107); POTASSIUM 4.5 mmol/L (3.4-5.1)
[2024-07-08] MEDS ORDERED: ATORVASTATIN CA20 M1 PO (12:28)
[2024-07-08 12:31] LABS: BILIRUBIN Negative (Negative); BLOOD Negative (Negative); CLARITY Clear (Clear); COLOR Yellow (Yellow); GLUCOSE Negative (Negative); KETONE Negative (Negative); LEUKO ESTERASE Negative (Negative); NITRITE Negative (Negative); PH 7.5 (4.5-8.0)
[2024-07-08 12:43] LABS: EPITHELIAL CELLS 0-2; RBC 0-2 rbc/hpf (0-2); WBC 0-2 wbc/hpf (0-5)
[2024-07-08] MEDS ORDERED: SODIUM CHLORIDE 0.9% 1,000 ML IV ONE (12:55)
== END 2024-07-08 14:33 | disposition home or self-care (01) ==
LOC: ED 11:43
PROVIDERS: Emergency Medicine
DX: R42 Dizziness and giddiness (principal); Z20.822 Contact with and (suspected) exposure to COVID-19; I48.91 Unspecified atrial fibrillation; J44.9 Chronic obstructive pulmonary disease, unspecified; I25.10 Atherosclerotic heart disease of native coronary artery without angina pectoris; I10 Essential (primary) hypertension; E78.5 Hyperlipidemia, unspecified; F17.210 Nicotine dependence, cigarettes, uncomplicated; Z79.899 Other long term (current) drug therapy; Z79.82 Long term (current) use of aspirin